=== PATIENT | male | born 1970 | race Caucasian/White ===

== ENCOUNTER 2022-06-07 16:18 | Emergency (ER) | payer OTHER ==
[~2022-06-07] VITALS: Ht 182.9 cm; Wt 86.2 kg
--- NOTE | 2022-06-07 20:26 | NUR ---
Patient discharged to home in stable condition. Written and verbal after care instructions given. Patient verbalizes understanding of instruction.
[2022-06-07 20:32] VITALS: BP 130/80
== END 2022-06-07 20:33 | disposition home or self-care (01) ==
LOC: ER 16:20
DX: S90.111A Contusion of right great toe without damage to nail, initial encounter (principal); Z60.2 Problems related to living alone; W31.9XXA Contact with unspecified machinery, initial encounter; Y93.89 Activity, other specified; Y92.89 Other specified places as the place of occurrence of the external cause; Y99.8 Other external cause status
CPT/HCPCS: 73630-TC